=== PATIENT | male | born 1980 | race Caucasian/White ===

== ENCOUNTER 2018-06-20 05:58 | Emergency (ER) | payer MEDICAID ==
[~2018-06-20] VITALS: Ht 190.5 cm; Wt 122.5 kg
[2018-06-20] MEDS ORDERED: CARDURA4 MG PO (06:10)
[2018-06-20] MEDS ORDERED: BISACODYL SUPP10 MG RECTAL (06:10)
[2018-06-20] MEDS ORDERED: FISH OIL 1,001000 M2 PO (06:10)
[2018-06-20] MEDS ORDERED: PROZAC20 MG PO (06:11)
[2018-06-20] MEDS ORDERED: LEVOXYL175 MCG PO (06:13)
[2018-06-20] MEDS ORDERED: FLEXERIL PO (06:13)
[2018-06-20] MEDS ORDERED: CLONAZEPAM 1 MG1 M1 PO (06:14)
[2018-06-20] MEDS ORDERED: HYDROXYZINE HCL25 M1 PO (06:14)
[2018-06-20] MEDS ORDERED: NEURONTIN 300300 M1 PO (06:14)
[2018-06-20] MEDS ORDERED: SENEXON-S TABL1 EACH PO (06:14)
[2018-06-20] MEDS ORDERED: RISPERIDONE1 MG PO (06:14)
[2018-06-20] MEDS ORDERED: ROBAXIN 750 MG750 M1 PO (06:15)
[2018-06-20] MEDS ORDERED: OXCARBAZEPINE600 MG PO (06:15)
[2018-06-20] MEDS ORDERED: FLOMAX0.4 MG PO (06:16)
[2018-06-20] MEDS ORDERED: OXYCODONE HCL10 MG PO (06:16)
[2018-06-20] MEDS ORDERED: ZYRTEC10 M5 PO (06:17)
[2018-06-20] MEDS ORDERED: TYLENOL325 MG PO (06:17)
[2018-06-20] MEDS ORDERED: MELATIN3 MG PO (06:18)
[2018-06-20] MEDS ORDERED: ZOFRAN ODT4 MG PO (06:19)
[2018-06-20] MEDS ORDERED: MAALOX ADVANCE355 ML PO (06:19)
[2018-06-20] MEDS ORDERED: ALEVE220 MG PO (06:19)
[2018-06-20] MEDS ORDERED: MILK OF MA400 MG/5 M PO (06:20)
[2018-06-20] MEDS ORDERED: MIRALAX17 GM PO (06:20)
[2018-06-20] MEDS ORDERED: BIOFREEZE118 ML TOP (06:20)
[2018-06-20] MEDS ORDERED: GEMFIBROZIL 60600 M1 PO (06:21)
[2018-06-20] MEDS ORDERED: DEPAKOTE ER500 M1 PO (06:21)
[2018-06-20 08:31] VITALS: BP 138/48
== END 2018-06-20 08:33 ==
LOC: M.ERS 05:58
DX: S82.831A Other fracture of upper and lower end of right fibula, initial encounter for closed fracture (principal); F17.200 Nicotine dependence, unspecified, uncomplicated; F20.0 Paranoid schizophrenia; F32.9 Major depressive disorder, single episode, unspecified; I10 Essential (primary) hypertension; E03.9 Hypothyroidism, unspecified; Z86.73 Personal history of transient ischemic attack (TIA), and cerebral infarction without residual deficits; Z88.8 Allergy status to other drugs, medicaments and biological substances; X58.XXXA Exposure to other specified factors, initial encounter; Y92.89 Other specified places as the place of occurrence of the external cause; Y93.89 Activity, other specified; Y99.8 Other external cause status